=== PATIENT | male | born 2005 | race Two or more races ===

== ENCOUNTER 2024-06-26 21:17 | Emergency (ER) | payer MEDICAID, SELFPAY ==
--- NOTE | ~2024-06-26 | US_ITS ---
CLINICAL HISTORY: RUQ pain, DKA, R O biliary disease, gallstone US abdomen limited Comparison: CT/SR - CT ABDOMEN PELVIS WO IV CON - 06/26/24 23:47 EDT Findings: The visualized portions of the liver appear normal. No focal hepatic lesion is seen. There is no bile duct dilation. Common duct measures 2 mm in diameter. There is a small amount of sludge in the gallbladder. Gallbladder appears otherwise normal. There is no sonographic Faith sign. IMPRESSION: Small amount of sludge in the gallbladder. Gallbladder appears otherwise normal. This document has been electronically signed by: Radames Valdovinos MD on 06/27/2024 01:17:36
--- NOTE | ~2024-06-26 | CT_ITS ---
CLINICAL HISTORY: Fever, RUQ pain, R O biliary colic, pancreatitis CT abdomen and pelvis without contrast Comparison: US - US ABDOMEN LIMITED - 06/27/24 00:19 EDT Findings: The lung bases are clear. The liver, gallbladder, pancreas, spleen, adrenal glands, and kidneys are unremarkable. The appendix is normal. There is a moderate amount of stool in the colon. Gastrointestinal tract is otherwise unremarkable. No enlarged lymph nodes are seen. The aorta is normal in diameter. The bladder is mildly distended. There is a healed or nearly healed reduced and internally fixated left posterior column acetabular fracture. There is no acute fracture or suspicious lytic or sclerotic lesion. IMPRESSION: No acute abnormality in the abdomen or pelvis. This document has been electronically signed by: Radames Valdovinos MD on 06/27/2024 01:02:21
--- NOTE | ~2024-06-26 | XR_ITS ---
CLINICAL HISTORY: Fever, rule out pneumonia 1 view chest x-ray. Comparison: None Findings: The lungs appear clear. There is no radiographic evidence of pneumonia. Cardiomediastinal silhouette is within normal limits. IMPRESSION: No acute cardiopulmonary abnormality. This document has been electronically signed by: Radames Valdovinos MD on 06/27/2024 03:19:53
[2024-06-26 21:23] VITALS: BP 161/97; PULSE 118; RESP 20; TEMP 36.5; O2SAT 100; BMI 20.3
--- OUTSIDE RECORDS SUMMARY | 2024-06-26 21:43 | XMS_ITS | Clinical Summary ---
Author Organization [employer] [facility] Address [address] [place] [address] Care Team Providers Care Department Secretary Name Role Phone Unavailable Primary Care Provider Unavailabl e Encounters Date Type Department Care Team Description 05/28/2024 Population Health Risk Score [facility] (C3) Department [address] [place] [address] Provider, Population Health Generic 04/07/2024 Telephone [facility] [address] [place] [address] Prabhjot Small MD No Show 04/07/2024 Telephone [facility] [address] [place] [address] Jo Bryan MA 04/07/2024 Travel 04/06/2024 Telephone [facility] [address] [place] [address] Jo Bryan MA chart prep from Last 3 Months Social History Tobacco Use Types Packs/Day Years Used Date Smoking Tobacco: Never Assessed Sex and Gender Information Value Date Recorded Sex Assigned at Male 04/07/2024 8:29 AM EST Legal Sex Male 11:41 AM EST Gender Identity Male 04/07/2024 8:29 AM EST Sexual Orientation Straight 04/07/2024 8: 29 AM EST Plan of Treatment Health Maintenance Due Date Last Done Comments Chlamydia and Gonorrhea Screening 2003 Depression Screening 2003 HIV Screening 2003 SDOH Screening 2003 Alcohol/Substance Use Screening 2015 Tobacco Screening 2015 Family Planning (PISQ) 2018 HPV Vaccines (1 - Male 3-dos e series) 2018 Hepatitis C Screening 2021 DTaP/Tdap/Td Vaccines (1 - Tdap) 2022 Hepatitis B Vaccines (1 of 3 - 19+ 3-dose series) 2022 COVID-19 Vaccine (1 - 2023-2 5 season) 2023 Influenza Vaccine (#1) 2023 Zoster Vaccines (1 of 2) 2053 RSV Patients and Pa tients Aged 60 years or older (1 - 1-dose 75+ series) 2078 HIB Vaccines Aged Out No longer eligi ble based on patient's age to complete this topic Hepatitis A Vaccines Aged Out No long er eligible based on patient's age to complete this topic IPV Vaccines Aged Out No longer eligi ble based on patient's age to complete this topic Meningococcal Vaccine Aged Out No henry chon eligible based on patient's age to complete this topic Pneumococcal Vaccine: Pediat rics (0 to 5 Years) and At-Risk Patients (6 to 49) Years) Aged Out No longer eligible b ased on patient's age to complete this topic RSV under 20 months Aged Out No longe r eligible based on patient's age to complete this topic Rotavirus Vaccines Aged Out No longer eligible based on patient's age to complete this topic Insurance [facility] C[facility]
[2024-06-26 21:45] LABS: Basophils Absolute Auto 0.1 X10*3/uL (0.0-0.2); Basophils Percent Auto 0.4 % (0-2); Hematocrit 49.6 % (42.0-52.0); Hemoglobin 17.6 g/dl (14.0-18.0); Imm Gran Abs Auto 0.29 X10*3/uL (0.00-0.03); Imm Gran Pct Auto 1.3 % (0.0-0.4); Lymphocytes Absolute Auto 1.4 X10*3/uL (1.2-4.9); MANUAL DIFF FLAG SCAN; Mean Corpuscular HGB Conc 35.5 g/dl (31.0-36.0); Mean Corpuscular Hemoglobin 32.9 pg (27.0-33.0); Mean Corpuscular Volume 92.7 fL (80.0-98.0); Mean Platelet Volume 10.2 fL (9.4-12.4); Monocytes Absolute Auto 2.2 X10*3/uL (0.1-1.2); Monocytes Percent Auto 9.3 % (2-11); Neutrophils Absolute Auto 19.1 x10*3/uL (2.0-8.3); Platelet Count 381 X10*3/uL (160-400); Red Blood Count 5.35 X10*6/uL (4.60-5.80); Red Cell Distribution Width 11.9 % (11.0-16.0); SCAN SMEAR FLAG 1
[2024-06-26 22:06] LABS: Anion Gap 30 (12-20); Blood Urea Nitrogen 13 mg/dL (9-16); Calcium 9.6 mg/dL (8.4-10.2); Carbon Dioxide 6 mmol/L (22-29); Chloride 101 mmol/L (96-108); Creatinine Clr Calc Pharmacy 59.3; Estimated Glomerular Filt Rate 50; Glucose Random 423 mg/dL (60-115); Potassium 4.9 mmol/L (3.3-5.1); Sodium 132 mmol/L (135-145)
--- NOTE | 2024-06-26 22:08 | ED.ABDPAIN ---
HPI - Abdominal Pain General Chief Complaint: Abdominal Pain Stated Complaint: sob,cough,fever Time Seen by Provider: 06/26/24 22:08 Source: patient and other (Significant other) Mode of arrival: ambulatory Limitations: language barrier (Patient's speaks Azeri only) History of Present Illness ED Provider: Dr. Vincenzo French HPI narrative: 19-year-old male with a history of diabetes mellitus, DKA who presents emergency department for evaluation of fever, abdominal pain, body aches, nausea and vomiting with symptoms starting today at 08:00 hours. The patient states that he was not been taking insulin for for several months. When questioned why he stop the insulin, he states that he was ?narrow minded? and thought that he did not need insulin anymore. Patient states that since stopping his insulin he was lost 54 lb. He states that he weighed 189 lb he now weighs 135 lb. Patient states he was having severe, constant, sharp pain in his right upper quadrant area which is greater than 10/10 and does radiate to his back. He states that he was had mild episodes of this type of pain in the last several months but never as severe as tonight's pain. Patient states he was had nausea and vomiting he was not been able to eat or drink for at least 24 hours. He states he was feeling very weak. He states that he was feeling short of breath. States that he was heart is pounding in his chest. He states he has been admitted multiple times in the past for diabetic ketoacidosis, but he was neve had severe abdominal pain similar to tonight's pain. He states that he felt very hot and had a fever earlier in the day, he also had shaking chills. He did not take his temperature. Related Data Allergies Allergy/AdvReac Type Severity Reaction Status Date / Time No Known Allergies Allergy Verified 06/26/24 21:25 Review of Systems Review of Systems Yes all other systems are reviewed and are negative [facility] Past Medical History [facility] Narrative: Social history: Denies tobacco use. He denies alcohol use. He states that he smokes marijuana 5 times a day. Social History Social History Smoked in Last 30 Days: No Use of substances other than those prescribed or required for medical reasons: Yes Substance Use Type: Marijuana Advance Directives: No Advance Directives Information Provided: No Do you have a plan to hurt others: No Plan Physical Exam ED Vital Signs: Vital Signs - 24 hr 06/26/24 21:23 06/26/24 22:13 06/26/24 22:31 Temperature 97.7 F Pulse Rate 118 H 115 H 101 H Respiratory Rate 20 45 H 28 H Blood Pressure 161/97 H Pulse Oximetry 100 99 99 Oxygen Delivery Method Room Air Room Air Room Air 06/26/24 23:24 06/26/24 23:55 Temperature Pulse Rate 105 H 104 H Respiratory Rate 19 22 H Blood Pressure 126/62 142/90 H Pulse Oximetry 99 96 Oxygen Delivery Method Room Air Room Air BMI result Body Mass Index 20.3 Vital signs revealed an elevated heart rate of 118 and elevated blood pressure of 161/97. Patient was an elevated respiratory rate of 20. Exam: General: Awake, patient appears to be in significant distress secondary to his right upper quadrant abdominal pain. He was a very strong ketotic odor to his breath, the patient is tachypneic Head: Normocephalic, atraumatic EENT: PERRL, Lids normal, sclera normal, conjunctiva normal, nose normal , ears normal, throat without erythema or exudates Neck: Supple, no adenopathy Lung: breath sounds symmetric, no wheezing, rales or rhonchi Chest: symmetric movement, nontender Heart: regular rate and rhythm, normal S1, S2 no murmurs or rubs Abdomen: soft, mild to moderate RUQ tenderness, mild diffuse tenderness, negative Faith sign, nondistended, normal bowel sounds Back: no vertebral tenderness, no CVAT Extremities: no deformities, moves all extremities symmetrically Neuro: Awake, alert, oriented, normal speech, cranial nerves intact, moves all extremities symmetrically Psych: Pleasant, cooperative Medical Decision Making Medical Decision Making MDM Narrative: 19-year-old male with a history of diabetes mellitus, DKA who presents emergency department for evaluation of fever, abdominal pain, body aches, nausea and vomiting with symptoms starting today at 08:00 hours. Patient had a subjective fever. He was complaining of severe right upper quadrant pain that started at 08:00 hours in his greater than 10/10. He was had nausea, vomiting and poor food and fluid intake for the past 24 hours. Patient was not been taking his insulin for several months in his had a 54 lb weight loss. Vital signs revealed elevated heart rate, respiratory rate and blood pressure. Exam revealed strong ketotic odor to his breath, moderate right upper quadrant tenderness with negative Faith sign and mild diffuse tenderness. Differential diagnosis: ?Includes but is not limited to diabetic ketoacidosis, acute cholecystitis, pancreatitis, abdominal pain secondary to DKA, you may, electrolyte abnormalities Course: 23:32 My interpretation patient's laboratory evaluation is as follows: WBCs elevated 23,000. H&H was normal 17.6 and 49.6. Platelet count was normal 381,000. Patient had a left shift with 83 neutrophils. VBG revealed a low pH of 6.84, low pCO2 of 24 and a low bicarb of 4. Sodium low 132. Serum bicarb low 6. Anion gap 30. BUN was normal at 13 with an elevated creatinine of 1.74. Glucose elevated 423. Total bilirubin elevated 1.2 with a low direct bilirubin of 0.3-suggesting that the elevated bilirubin is not related to biliary disease. AST elevated 46. Alk-phos elevated 137. Total protein elevated 9.3 with an elevated albumin of 5.6. Lipase was normal 11. Beta hydroxybutyrate elevated 11.91. Lactic acid was normal at 1.8. The patient's laboratory evaluation is consistent with severe diabetic ketoacidosis with a pH of less than 7.0 and a low serum bicarb of 6. Concerned that you may also have an abdominal infection given the severity of his right upper quadrant pain. Patient was treated with the following: -Lactated Ringer's x2 L, insulin drip starting at 6 units per hour and adjusted as protocol Q 1 hour based on POC glucose -Potassium chloride 10 mEq in 100 mL Q 1 hour x4 -Sodium bicarb 150 mEq once in 1 L D5 W at 150 cc/hour -Dilaudid 1 mg IV and Zofran 4 mg IV for his abdominal pain and nausea. - Zosyn 4.5 g IV for possible abdominal infection 00:48 Patient's venous pH improved to 7.1. Patient's anion gap improved to 23 but the patient was bicarb was unchanged at 6. Glucose did come down to 293. 02:28 The patient was 1 view chest x-ray was interpreted by me as no acute disease, no infiltrates. I did attempt to transfer the patient to [facility] and [facility] but both of these hospitals were closed to transferred secondary to capacity issues. I did contact the [facility] system transfer line and the transfer nurse was able to locate a step-down unit bed at [facility]. I did discuss the patient's presentation with the relay associate at this facility, Dr. Fall and she accepted the patient as an ED to Hospital transfer. I did discuss with the patient and his significant other, Vicky,, the need to transfer the patient out of [place] and to [place] where there is an available intensive care unit bed. They both agree to this transfer. 02:37 Patient's venous pH improved to 7.21. Venous bicarb came up slightly to 9. Point of care glucose was 182. Given this drop in glucose, increase the patient's sodium bicarb/D5 W drip to 250 cc an hour to give the patient more glucose to support further insulin use. Lab Data 06/26/24 21:38 06/27/24 00:38 Labs: Lab Results 06/26/24 06/26/24 06/26/24 Range/Units 21:38 21:42 22:19 WBC 23.0 H (4.8-10.8) X10*3/uL RBC 5.35 (4.60-5.80) X10*6/uL Hgb 17.6 (14.0-18.0) g/dl Hct 49.6 (42.0-52.0) % MCV 92.7 (80.0-98.0) fL MCH 32.9 (27.0-33.0) pg MCHC 35.5 (31.0-36.0) g/dl RDW 11.9 (11.0-16.0) % Plt Count 381 (160-400) X10*3/uL MPV 10.2 (9.4-12.4) fL Immature Gran % (Auto) 1.3 H (0.0-0.4) % Neut % (Auto) 83.0 H (45-73) % Lymph % (Auto) 6.0 L (20-40) % [place] % (Auto) 9.3 (2-11) % Eos % (Auto) 0.0 (0-4) % Baso % (Auto) 0.4 (0-2) % Lymph # (Auto) 1.4 (1.2-4.9) X10*3/uL [place] # (Auto) 2.2 H (0.1-1.2) X10*3/uL Eos # (Auto) 0.0 (0.0-0.4) X10*3/uL Baso # (Auto) 0.1 (0.0-0.2) X10*3/uL Abs Immat Gran (auto) 0.29 H (0.00-0.03) X10*3/uL Absolute Neuts (auto) 19.1 H (2.0-8.3) x10*3/uL Absolute Nucleated RBC 0.000 (0.0-0.012) X10*3/uL Nucleated RBC % (auto) 0.0 (0.0-0.2) /100WBC Smear Tech's Comments VERIFIED VBG pH (7.32-7.43) VBG pCO2 mmHg VBG pO2 mmHg VBG HCO3 (22-26) mmol/L VBG O2 Saturation % VBG Base Excess mmol/L Sodium 132 L (135-145) mmol/L Potassium 4.9 (3.3-5.1) mmol/L Chloride 101 (96-108) mmol/L Carbon Dioxide 6 L* (22-29) mmol/L Anion Gap 30 H (12-20) BUN 13 (9-16) mg/dL Creatinine 1.74 H (0.5-1.4) mg/dL Estim Creat Clear Calc 59.3 Estimated GFR 50 POC Glucose (60-115) mg/dL Random Glucose 423 H* (60-115) mg/dL Lactic Acid 1.8 (0.5-2.0) mmol/L Calcium 9.6 (8.4-10.2) mg/dL Magnesium 1.9 (1.6-2.6) mg/dL Total Bilirubin 1.2 H (0.0-1.0) mg/dL Direct Bilirubin 0.3 (0.0-0.5) mg/dL AST 46 H (5-37) U/L ALT 25 (0-40) U/L Alkaline Phosphatase 137 H (39-117) U/L Total Protein 9.3 H (6.5-8.0) g/dL Albumin 5.6 H (3.5-5.0) g/dL Lipase 11 (8-78) U/L Beta-Hydroxybutyrate 11.91 H (0.02-0.27) mmol/L Urine Color Urine Appearance Urine pH (5.0-9.0) Ur Specific [place] (1.005-1.025) Urine Protein (Neg-Trace) mg/dL Urine Glucose (UA) (Negative) mg/dL Urine Ketones (Negative) mg/dL Urine Blood (Negative) Urine Nitrite (Negative) Ur Leukocyte Esterase (Negative) Urine RBC (0-2) /HPF Urine WBC (0-5) /HPF Ur Squamous Epith Cells (0-2) /HPF Urine Bacteria (None Seen) Hyaline Casts (0-2) /LPF Granular Casts Influenza Type A (PCR) NEGATIVE (Negative) Influenza Type B (PCR) NEGATIVE (Negative) RSV RNA Qual (PCR) NEGATIVE (Negative) SARS-CoV-2 RNA (RT-PCR) NEGATIVE (Negative) 06/26/24 06/26/24 06/26/24 Range/Units 22:21 22:23 22:27 WBC (4.8-10.8) X10*3/uL RBC (4.60-5.80) X10*6/uL Hgb (14.0-18.0) g/dl Hct (42.0-52.0) % MCV (80.0-98.0) fL MCH (27.0-33.0) pg MCHC (31.0-36.0) g/dl RDW (11.0-16.0) % Plt Count (160-400) X10*3/uL MPV (9.4-12.4) fL Immature Gran % (Auto) (0.0-0.4) % Neut % (Auto) (45-73) % Lymph % (Auto) (20-40) % [place] % (Auto) (2-11) % Eos % (Auto) (0-4) % Baso % (Auto) (0-2) % Lymph # (Auto) (1.2-4.9) X10*3/uL [place] # (Auto) (0.1-1.2) X10*3/uL Eos # (Auto) (0.0-0.4) X10*3/uL Baso # (Auto) (0.0-0.2) X10*3/uL Abs Immat Gran (auto) (0.00-0.03) X10*3/uL Absolute Neuts (auto) (2.0-8.3) x10*3/uL Absolute Nucleated RBC (0.0-0.012) X10*3/uL Nucleated RBC % (auto) (0.0-0.2) /100WBC Smear Tech's Comments VBG pH 6.84 L* (7.32-7.43) VBG pCO2 24 mmHg VBG pO2 60 mmHg VBG HCO3 4 L (22-26) mmol/L VBG O2 Saturation 82.0 % VBG Base Excess -29.1 mmol/L Sodium (135-145) mmol/L Potassium (3.3-5.1) mmol/L Chloride (96-108) mmol/L Carbon Dioxide (22-29) mmol/L Anion Gap (12-20) BUN (9-16) mg/dL Creatinine (0.5-1.4) mg/dL Estim Creat Clear Calc Estimated GFR POC Glucose 426 H* (60-115) mg/dL Random Glucose (60-115) mg/dL Lactic Acid (0.5-2.0) mmol/L Calcium (8.4-10.2) mg/dL Magnesium (1.6-2.6) mg/dL Total Bilirubin (0.0-1.0) mg/dL Direct Bilirubin (0.0-0.5) mg/dL AST (5-37) U/L ALT (0-40) U/L Alkaline Phosphatase (39-117) U/L Total Protein (6.5-8.0) g/dL Albumin (3.5-5.0) g/dL Lipase (8-78) U/L Beta-Hydroxybutyrate (0.02-0.27) mmol/L Urine Color Yellow Urine Appearance Clear Urine pH 5.0 (5.0-9.0) Ur Specific [place] >= 1.030 H (1.005-1.025) Urine Protein 100 (2+) H (Neg-Trace) mg/dL Urine Glucose (UA) >=1000 H (Negative) mg/dL Urine Ketones >=160 (Negative) mg/dL Urine Blood Large (3+) H (Negative) Urine Nitrite Negative (Negative) Ur Leukocyte Esterase Negative (Negative) Urine RBC 0-2 (0-2) /HPF Urine WBC 0-5 (0-5) /HPF Ur Squamous Epith Cells 0-2 (0-2) /HPF Urine Bacteria None Seen (None Seen) Hyaline Casts 3-5 (0-2) /LPF Granular Casts Present Influenza Type A (PCR) (Negative) Influenza Type B (PCR) (Negative) RSV RNA Qual (PCR) (Negative) SARS-CoV-2 RNA (RT-PCR) (Negative) 06/26/24 06/27/24 06/27/24 Range/Units 23:22 00:28 00:38 WBC (4.8-10.8) X10*3/uL RBC (4.60-5.80) X10*6/uL Hgb (14.0-18.0) g/dl Hct (42.0-52.0) % MCV (80.0-98.0) fL MCH (27.0-33.0) pg MCHC (31.0-36.0) g/dl RDW (11.0-16.0) % Plt Count (160-400) X10*3/uL MPV (9.4-12.4) fL Immature Gran % (Auto) (0.0-0.4) % Neut % (Auto) (45-73) % Lymph % (Auto) (20-40) % [place] % (Auto) (2-11) % Eos % (Auto) (0-4) % Baso % (Auto) (0-2) % Lymph # (Auto) (1.2-4.9) X10*3/uL [place] # (Auto) (0.1-1.2) X10*3/uL Eos # (Auto) (0.0-0.4) X10*3/uL Baso # (Auto) (0.0-0.2) X10*3/uL Abs Immat Gran (auto) (0.00-0.03) X10*3/uL Absolute Neuts (auto) (2.0-8.3) x10*3/uL Absolute Nucleated RBC (0.0-0.012) X10*3/uL Nucleated RBC % (auto) (0.0-0.2) /100WBC Smear Tech's Comments VBG pH (7.32-7.43) VBG pCO2 mmHg VBG pO2 mmHg VBG HCO3 (22-26) mmol/L VBG O2 Saturation % VBG Base Excess mmol/L Sodium 130 L (135-145) mmol/L Potassium 4.8 (3.3-5.1) mmol/L Chloride 106 (96-108) mmol/L Carbon Dioxide 6 L* (22-29) mmol/L Anion Gap 23 H (12-20) BUN 11 (9-16) mg/dL Creatinine 1.18 (0.5-1.4) mg/dL Estim Creat Clear Calc 87.5 Estimated GFR > 60 POC Glucose 358 H* 330 H (60-115) mg/dL Random Glucose 293 H (60-115) mg/dL Lactic Acid (0.5-2.0) mmol/L Calcium 8.9 D (8.4-10.2) mg/dL Magnesium (1.6-2.6) mg/dL Total Bilirubin (0.0-1.0) mg/dL Direct Bilirubin (0.0-0.5) mg/dL AST (5-37) U/L ALT (0-40) U/L Alkaline Phosphatase (39-117) U/L Total Protein (6.5-8.0) g/dL Albumin (3.5-5.0) g/dL Lipase (8-78) U/L Beta-Hydroxybutyrate (0.02-0.27) mmol/L Urine Color Urine Appearance Urine pH (5.0-9.0) Ur Specific [place] (1.005-1.025) Urine Protein (Neg-Trace) mg/dL Urine Glucose (UA) (Negative) mg/dL Urine Ketones (Negative) mg/dL Urine Blood (Negative) Urine Nitrite (Negative) Ur Leukocyte Esterase (Negative) Urine RBC (0-2) /HPF Urine WBC (0-5) /HPF Ur Squamous Epith Cells (0-2) /HPF Urine Bacteria (None Seen) Hyaline Casts (0-2) /LPF Granular Casts Influenza Type A (PCR) (Negative) Influenza Type B (PCR) (Negative) RSV RNA Qual (PCR) (Negative) SARS-CoV-2 RNA (RT-PCR) (Negative) 06/27/24 Range/Units 00:43 WBC (4.8-10.8) X10*3/uL RBC (4.60-5.80) X10*6/uL Hgb (14.0-18.0) g/dl Hct (42.0-52.0) % MCV (80.0-98.0) fL MCH (27.0-33.0) pg MCHC (31.0-36.0) g/dl RDW (11.0-16.0) % Plt Count (160-400) X10*3/uL MPV (9.4-12.4) fL Immature Gran % (Auto) (0.0-0.4) % Neut % (Auto) (45-73) % Lymph % (Auto) (20-40) % [place] % (Auto) (2-11) % Eos % (Auto) (0-4) % Baso % (Auto) (0-2) % Lymph # (Auto) (1.2-4.9) X10*3/uL [place] # (Auto) (0.1-1.2) X10*3/uL Eos # (Auto) (0.0-0.4) X10*3/uL Baso # (Auto) (0.0-0.2) X10*3/uL Abs Immat Gran (auto) (0.00-0.03) X10*3/uL Absolute Neuts (auto) (2.0-8.3) x10*3/uL Absolute Nucleated RBC (0.0-0.012) X10*3/uL Nucleated RBC % (auto) (0.0-0.2) /100WBC Smear Tech's Comments VBG pH 7.15 L* (7.32-7.43) VBG pCO2 15 mmHg VBG pO2 109 mmHg VBG HCO3 5 L (22-26) mmol/L VBG O2 Saturation 99.0 % VBG Base Excess -20.6 mmol/L Sodium (135-145) mmol/L Potassium (3.3-5.1) mmol/L Chloride (96-108) mmol/L Carbon Dioxide (22-29) mmol/L Anion Gap (12-20) BUN (9-16) mg/dL Creatinine (0.5-1.4) mg/dL Estim Creat Clear Calc Estimated GFR POC Glucose (60-115) mg/dL Random Glucose (60-115) mg/dL Lactic Acid (0.5-2.0) mmol/L Calcium (8.4-10.2) mg/dL Magnesium (1.6-2.6) mg/dL Total Bilirubin (0.0-1.0) mg/dL Direct Bilirubin (0.0-0.5) mg/dL AST (5-37) U/L ALT (0-40) U/L Alkaline Phosphatase (39-117) U/L Total Protein (6.5-8.0) g/dL Albumin (3.5-5.0) g/dL Lipase (8-78) U/L Beta-Hydroxybutyrate (0.02-0.27) mmol/L Urine Color Urine Appearance Urine pH (5.0-9.0) Ur Specific [place] (1.005-1.025) Urine Protein (Neg-Trace) mg/dL Urine Glucose (UA) (Negative) mg/dL Urine Ketones (Negative) mg/dL Urine Blood (Negative) Urine Nitrite (Negative) Ur Leukocyte Esterase (Negative) Urine RBC (0-2) /HPF Urine WBC (0-5) /HPF Ur Squamous Epith Cells (0-2) /HPF Urine Bacteria (None Seen) Hyaline Casts (0-2) /LPF Granular Casts Influenza Type A (PCR) (Negative) Influenza Type B (PCR) (Negative) RSV RNA Qual (PCR) (Negative) SARS-CoV-2 RNA (RT-PCR) (Negative) Medications Administered Generic Name Dose Route Start Last Admin Trade Name Freq PRN Reason Stop Dose Admin Insulin Human Regular 100 unit in 100 mls @ 6 mls/hr 06/26/24 22:15 06/27/24 01:29 Myxredlin IVCONT 4.5 unit/hr .[id number] CAMERON 4.5 mls/hr Titration Protocol 6 UNIT/HR Sodium Bicarbonate 150 meq/ 1,000 mls @ 100 mls/hr 06/26/24 23:00 06/26/24 22:56 Dextrose IV 100 mls/hr .Q10H CAMERON Administration Potassium Chloride 10 meq in 100 mls @ 100 mls/hr 06/26/24 22:45 06/27/24 01:18 Potassium Chloride/H20 IV 06/27/24 02:44 100 mls/hr Q1H CAMERON Administration Discontinued Medications Generic Name Dose Route Start Last Admin Trade Name Freq PRN Reason Stop Dose Admin Hydromorphone HCl 1 mg 06/26/24 22:10 06/26/24 22:14 Hydromorphone Hcl 1 Mg/Ml Syringe IVPUSH 06/26/24 22:11 1 mg ONCE STA Administration Protocol Lactated Ringer's 1,000 mls @ 999 mls/hr 06/26/24 22:12 06/26/24 23:24 Lr IV 06/26/24 23:12 Infused .Q1H1M STA Infusion Lactated Ringer's 1,000 mls @ 999 mls/hr 06/26/24 22:14 06/26/24 23:24 Lr IV 06/26/24 23:14 Infused .Q1H1M STA Infusion Piperacillin Sod/Tazobactam 100 mls @ 200 mls/hr 06/26/24 22:38 06/26/24 23:24 Sod 4.5 gm/ Sodium Chloride IV 06/26/24 23:07 Infused ONCE ONE Infusion Ondansetron HCl 4 mg 06/26/24 22:10 06/26/24 22:13 Ondansetron Hcl 4 Mg/2 Ml Vial IVPUSH 06/26/24 22:11 4 mg ONCE ONE Administration Critical Care Time Critical Care Time Critical Care Time: Yes Total Critical Care Time: 150 Attestation: Critical Care: The patient was critically ill with a high probability of imminent or life threatening deterioration. I spent greater than 30 minutes of discontinuous time evaluating the patient,delivering critical care at the bedside, discussing and evaluating pertinent data with consultants. Critical care time does not include time spent performing separately billable procedures or teaching. Total time spent performing critical care was 150 minutes. Discharge Plan Discharge Clinical Impression: Diabetic keto-acidosis, Abdominal pain Patient Disposition: [facility] Transfer Details: [facility], [facility], accepting relay associate Dr. Fall Print Language: Azeri
[2024-06-26 22:13] VITALS: PULSE 115; RESP 45; O2SAT 99
[2024-06-26] MEDS: ondansetron HCL 4 MG/2 ML VIAL IVPUSH (22:13)
[2024-06-26] MEDS: HYDROmorphone HCl 1 MG/ML SYRINGE IVPUSH (22:14)
[2024-06-26 22:18] LABS: SLIDE REVIEW VERIFIED
[2024-06-26] MEDS: Lactated Ringers 1,000 ML 999 ML IV ×2 (22:18)
[2024-06-26] MEDS: Insulin Regular/NS 100 UNIT/100 ML PLAST..BAG 6 UNIT IVCONT (22:20)
[2024-06-26 22:24] LABS: Glucose, Whole Blood 426 mg/dL (60-115)
[2024-06-26 22:27] LABS: Influenza A PCR NEGATIVE (Negative); Influenza B PCR NEGATIVE (Negative); Resp Syncy Virus RNA Qual PCR NEGATIVE (Negative); SARS COV2 PCR INHOUSE NEGATIVE (Negative)
[2024-06-26 22:31] VITALS: PULSE 101; RESP 28; O2SAT 99
[2024-06-26 22:32] LABS: Appearance Urine Clear; Color Urine Yellow; Glucose Urine UA >=1000 mg/dL (Negative); Leukocyte Esterase Urine Negative (Negative); Nitrite Urine Negative (Negative); Specific Gravity - Urine >= 1.030 (1.005-1.025); UMIC TRIGGER UACC YES; Urine Blood Large (3+) (Negative); Urine Ketones >=160 mg/dL (Negative); Urine Protein 100 (2+) mg/dL (Neg-Trace)
[2024-06-26 22:34] LABS: VBG Base Excess -29.1 mmol/L; VBG HCO3 4 mmol/L (22-26); VBG pCO2 24 mmHg; VBG pH 6.84 (7.32-7.43); VBG pO2 60 mmHg
[2024-06-26 22:34] LABS: Venous Blood Gas Refer to POC result
[2024-06-26 22:38] LABS: Alanine Aminotransferase 25 U/L (0-40); Albumin Level 5.6 g/dL (3.5-5.0); Alkaline Phosphatase 137 U/L (39-117); Aspartate Amino Transferase 46 U/L (5-37); Bilirubin Direct 0.3 mg/dL (0.0-0.5); Bilirubin Total 1.2 mg/dL (0.0-1.0); Lipase 11 U/L (8-78); Magnesium 1.9 mg/dL (1.6-2.6); Total Protein 9.3 g/dL (6.5-8.0)
[2024-06-26 22:43] LABS: Bacteria Urine None Seen (None Seen); Granular Casts Urine Present; RBC Urine 0-2 /HPF (0-2); Squamous Epithelial Cell Urine 0-2 /HPF (0-2); WBC Urine 0-5 /HPF (0-5)
[2024-06-26 22:48] LABS: Lactic Acid 1.8 mmol/L (0.5-2.0)
[2024-06-26] MEDS: Piperacillin Sodium/Tazobactam 4.5 GM in 0.9 % Sodium Chloride 100 ML IV (22:53)
[2024-06-26] MEDS: Sodium Bicarbonate 8.4% 150 MEQ in Dextrose 5 % 850 ML 100 MEQ IV (22:56)
[2024-06-26 22:58] LABS: Beta-Hydroxybutyrate 11.91 mmol/L (0.02-0.27)
[2024-06-26] MEDS: Potassium Chloride/H20 10 MEQ/100 ML PIGGYBACK 100 MEQ IV ×2 (23:04→23:57)
[2024-06-26 23:24] VITALS: BP 126/62; PULSE 105; RESP 19; O2SAT 99
[2024-06-26 23:26] LABS: Glucose, Whole Blood 358 mg/dL (60-115)
[2024-06-26 23:55] VITALS: BP 142/90; PULSE 104; RESP 22; O2SAT 96
--- NOTE | 2024-06-27 00:14 | PC.NURSE ---
late entry: pt was brought from via wheelchair to ed21, pt yelling in pain reporting RUQ abd pain 12/24 approx 2200. at that point pt transferred to [facility], iv established, placed on cardiac monitoring. 2204 critical labs reported as documented and reported to MD French who came to bedside to evaluate patient. administrative staff supervisor at bedside. pt reports he is a diabetic and has not been administering insulin x approx 1 month. 2nd iv established. ivf started per may. insulin drip initiated. additional labs obtained. patient medicated with dilaudid for pain with good effect. 2319 respirations improved, rate approx 19 breaths/min, pt resting comfortably in stretcher. pt is more responsive at this time, resp even and unlabored, axox4, denies pain tolerated ct scan without issue. u/s being obtained at this time.
--- NOTE | 2024-06-27 00:29 | PC.NURSE ---
poc 330, infusion increased per protocol and documented in MAR.
[2024-06-27 00:33] LABS: Glucose, Whole Blood 330 mg/dL (60-115)
[2024-06-27 00:50] LABS: Venous Blood Gas Refer to POC result
[2024-06-27 00:50] LABS: VBG Base Excess -20.6 mmol/L; VBG HCO3 5 mmol/L (22-26); VBG pCO2 15 mmHg; VBG pH 7.15 (7.32-7.43); VBG pO2 109 mmHg
[2024-06-27 00:57] LABS: Anion Gap 23 (12-20); Blood Urea Nitrogen 11 mg/dL (9-16); Calcium 8.9 mg/dL (8.4-10.2); Carbon Dioxide 6 mmol/L (22-29); Chloride 106 mmol/L (96-108); Creatinine Clr Calc Pharmacy 87.5; Estimated Glomerular Filt Rate > 60; Glucose Random 293 mg/dL (60-115); Potassium 4.8 mmol/L (3.3-5.1); Sodium 130 mmol/L (135-145)
[2024-06-27 01:08] VITALS: BP 120/64; PULSE 96; RESP 17; O2SAT 96
[2024-06-27] MEDS: Potassium Chloride/H20 10 MEQ/100 ML PIGGYBACK 100 MEQ IV ×2 (01:18→02:30)
--- NOTE | 2024-06-27 01:21 | PC.NURSE ---
Pt resting, resp even unlabored. Pts gf at bedside Pt medicated per [facility] Plan of care ongoing.
[2024-06-27 01:33] LABS: Glucose, Whole Blood 226 mg/dL (60-115)
[2024-06-27 02:08] VITALS: BP 136/74; PULSE 97; RESP 14; TEMP 37.5; O2SAT 99
[2024-06-27 02:38] LABS: Glucose, Whole Blood 182 mg/dL (60-115)
--- NOTE | 2024-06-27 02:40 | PC.NURSE ---
attempt to give report to unit at , requested to call back in 10-15 min. MD aware of poc, per protocol to infuse insulin at same rate. per MD will increase rate of sodium bicarb infusion.
[2024-06-27 02:42] LABS: Venous Blood Gas Refer to POC result
[2024-06-27 02:42] LABS: VBG Base Excess -16.1 mmol/L; VBG HCO3 9 mmol/L (22-26); VBG pCO2 23 mmHg; VBG pH 7.21 (7.32-7.43); VBG pO2 63 mmHg
[2024-06-27 02:54] LABS: Anion Gap 20 (12-20); Blood Urea Nitrogen 11 mg/dL (9-16); Calcium 9.5 mg/dL (8.4-10.2); Carbon Dioxide 9 mmol/L (22-29); Chloride 108 mmol/L (96-108); Creatinine Clr Calc Pharmacy 90.6; Estimated Glomerular Filt Rate > 60; Glucose Random 191 mg/dL (60-115); Potassium 4.4 mmol/L (3.3-5.1); Sodium 133 mmol/L (135-145)
[2024-06-27] MEDS: Sodium Bicarbonate 8.4% 150 MEQ in Dextrose 5 % 850 ML 250 MEQ IV (03:13)
[2024-06-27 03:34] LABS: Glucose, Whole Blood 205 mg/dL (60-115)
[2024-06-27 03:41] VITALS: BP 114/77; PULSE 92; RESP 15; O2SAT 98
--- NOTE | 2024-06-27 03:51 | PC.NURSE ---
report given to Julieta HALL at [phone].
[2024-06-27 03:53] VITALS: BP 114/77; PULSE 92; RESP 15; TEMP 37.5; O2SAT 98
== END 2024-06-27 03:55 | disposition short-term general hospital (02) ==
PROVIDERS: Emergency Provider Emergency Medicine Emergency Medical Services
DX: E11.10 Type 2 diabetes mellitus with ketoacidosis without coma (principal); E11.65 Type 2 diabetes mellitus with hyperglycemia; R10.2 Pelvic and perineal pain; R06.02 Shortness of breath; M54.50 Low back pain, unspecified; R05.9 Cough, unspecified; R00.0 Tachycardia, unspecified; R50.9 Fever, unspecified; R11.2 Nausea with vomiting, unspecified; R10.11 Right upper quadrant pain; Z03.818 Encounter for observation for suspected exposure to other biological agents ruled out; Z79.4 Long term (current) use of insulin; Z79.899 Other long term (current) drug therapy; Z91.148 Patient's other noncompliance with medication regimen for other reason
CPT/HCPCS: 0241U; 36415; 71045; 74176; 76705; 80048; 80076; 81001; 82010; 82803; 82947; 83605; 83690; 83735; 85025; 87040; 96361; 96365; 96366; 96375; 99285; 99291; 99292; J1171; J2405; J2543; J3480; J7120

== ENCOUNTER → 2024-06-26 22:30 | Outpatient (BNV) | payer MEDICAID, SELFPAY | PROVIDERS: Emergency Provider Emergency Medicine Emergency Medical Services; Visit Provider Radiology Diagnostic Radiology | DX: R10.31 Right lower quadrant pain (principal); R50.9 Fever, unspecified | CPT/HCPCS: 74176 ==

== ENCOUNTER → 2024-06-27 | Outpatient (BNV) | payer MEDICAID, SELFPAY | PROVIDERS: Emergency Provider Emergency Medicine Emergency Medical Services; Visit Provider Radiology Diagnostic Radiology | DX: R10.11 Right upper quadrant pain (principal); R50.9 Fever, unspecified | CPT/HCPCS: 71045; 76705 ==